=== PATIENT | male | born 1945 | race Caucasian/White ===

== ENCOUNTER 2020-08-11 18:14 | Emergency (ER) | payer MEDICARE, SELFPAY ==
[2020-08-11 18:46] VITALS: BP 146/67; PULSE 92; RESP 20; TEMP 36.6; O2SAT 97
--- NOTE | 2020-08-11 18:52 | ED.GENADULT ---
HPI - General Adult General Chief complaint: Urogenital-Male Stated complaint: Weak,Chills,Throwing Up Time Seen by Provider: 08/11/20 18:52 Source: patient and RN notes reviewed Mode of arrival: wheelchair Limitations: no limitations History of Present Illness HPI narrative: 75-year-old male presents with complaints of dysuria, lower back pain, fatigue, and nausea for 1 day. Grayson reports dysuria consist of frequent, burning, decrease urine, and urgency.? Increasing symptoms throughout the day of nausea, fatigue and fever. No treatment. Fever as high as 99.2 Fahrenheit, orally with intermittent chills. Nausea and dry heaving without vomiting and abdominal pain. Tolerating liquids well. No genital discharge.? No concerns for STDs. Exacerbating factors urinating.? Denies hematuria or genital bleeding. Remains active. The patient reports he have not been diagnosed with COVID-19. he patient reports he received vaccination for COVID-19. The patient reports he is not waiting for the results of a COVID-19 lab test. The patient reports he do not have a new or worsening cough or shortness of breath. Denies chest pain. The patient reports he do not have any rhinorrhea, congestion, loss of taste or smell, sore throat, and diarrhea. Denies recent traveling. Denies concerns for COVID-19 or exposures been home with limited outdoor exposure except for essential household needs and return home. At this time, patient is not suspected of having COVID-19. Some parts of this dictation were generated by voice recognition software and may contain typographical and/or grammatical inaccuracies. Related Data Home Medications Medication Instructions Recorded Confirmed aspirin 81 mg PO DAILY 08/11/20 08/11/20 dexlansoprazole [Dexilant] 60 mg PO DAILY 08/11/20 08/11/20 isosorbide mononitrate [Imdur] 30 mg PO DAILY 08/11/20 08/11/20 rosuvastatin [Crestor] 10 mg PO DAILY 08/11/20 08/11/20 simvastatin [Zocor] 20 mg PO DAILY 08/11/20 08/11/20 Allergies Allergy/AdvReac Type Severity Reaction Status Date / Time No Known Allergies Allergy Verified 08/11/20 18:29 Review of Systems Review of Systems: Narrative: CONSTITUTIONAL: Complains of fever, chills, fatigue. Denies sweats. EYES: Denies visual changes, redness, discharge. ENT: Denies rhinorrhea, congestion, sore throat, otalgia. CARDIOVASCULAR: Denies chest pain, palpitations, edema. RESPIRATORY: Denies dyspnea, wheezing, cough. GASTROINTESTINAL: Denies abdominal pain, vomiting, diarrhea. Complains of nausea. GENITOURINARY: Complains of dysuria (burning, small amount, and urgency), Denies hematuria, abnormal discharge. SKIN: Denies rash or itching. MUSCULOSKELETAL: Complains of diffused lower back pain. Denies joint pain or myalgia. NEUROLOGIC: Denies numbness or focal weakness. PSYCHIATRIC: Denies anxiety or depression. All other systems reviewed are negative, except as documented in HPI and below. [facility] Past Medical History Medical History (Updated 08/15/20 @ 01:15 by ZACK Villagomez) Coronary artery disease History of gastroesophageal reflux (GERD) Hypercholesteremia Surgical History Surgical History (Updated 08/11/20 @ 19:51 by ZACK Villagomez) History of heart surgery Family History Family History (Updated 08/11/20 @ 19:51 by ZACK Villagomez) Father Cancer Mother Heart disease Social History Social History (Updated 08/11/20 @ 19:52 by ZACK Villagomez) Smoking status: Never smoker Tobacco type: cigarettes Second hand tobacco smoke exposure: No Alcohol intake: never Substance use: never Living arrangements: with family Occupation/Education: retired Gender identity (if verbalized by the patient): Male Sexual Orientation (if Verbalized by the Patient): Straight or Heterosexual Comments At time of signature, agree with nurse past medical, surgical, social, and family history.? There is no rele
== END 2020-08-11 19:51 | disposition home or self-care (01) ==
PROVIDERS: Emergency Provider Nurse Practitioner Family; PCP Internal Medicine
DX: N39.0 Urinary tract infection, site not specified (principal); R11.0 Nausea; I25.10 Atherosclerotic heart disease of native coronary artery without angina pectoris; K21.9 Gastro-esophageal reflux disease without esophagitis; E78.00 Pure hypercholesterolemia, unspecified
CPT/HCPCS: 81003; 87077; 87086; 87088; 87186; 99203; G0463

== ENCOUNTER 2022-02-14 15:27 | Emergency (ER) | payer MEDICARE, SELFPAY ==
[2022-02-14 15:46] VITALS: BP 126/44; PULSE 76; RESP 16; TEMP 37.2; O2SAT 98
[2022-02-14 16:00] LABS: Glucose Point of Care 109 mg/dl (65-105)
--- NOTE | 2022-02-14 16:30 | ED.WEAKNESS ---
HPI - Weakness General Chief complaint: Urogenital-Male Stated complaint: uti Time Seen by Provider: 02/14/22 15:46 Source: patient Mode of arrival: ambulatory Limitations: no limitations History of Present Illness HPI Narrative: Mr. Castellanos is a 76-year-old male patient presenting to the clinic today with complaints of weakness, not feeling right in the head, and decreased appetite. He reports that he got a shingles shot yesterday and thinks that this may be the cause of his symptoms. His also reports that he has had these symptoms before when he had a urinary tract infection. He denies any fever or chills. He denies any shortness of breath or chest pain. Altered mental status is appropriate. He denies having a headache currently. When asked about facial asymmetry the stated that he has always had a crooked smile. He reports that his symptoms began this morning when he awoke Related Data Home Medications Medication Instructions Recorded Confirmed aspirin 81 mg tablet 81 mg PO DAILY 08/11/20 08/11/20 dexlansoprazole 60 mg 60 mg PO DAILY 08/11/20 08/11/20 capsule,biphase delayed release (Dexilant) isosorbide mononitrate 30 mg 30 mg PO DAILY 08/11/20 08/11/20 tablet,extended release 24 hr rosuvastatin 10 mg tablet (Crestor) 10 mg PO DAILY 08/11/20 08/11/20 simvastatin 20 mg tablet (Zocor) 20 mg PO DAILY 08/11/20 08/11/20 Allergies Allergy/AdvReac Type Severity Reaction Status Date / Time No Known Allergies Allergy Verified 08/11/20 18:29 Review of Systems Review of Systems: Pertinent positives per HPI. Patient denies any fever, chills, rash, headache, visual changes, dizziness, cough, runny nose, sore throat, shortness of breath, chest pain, palpitations, nausea, vomiting, diarrhea, constipation, abdominal pain, or any urinary issues. COUNTS INCLUDE 234 BEDS AT THE [facility] Past Medical History Medical History Coronary artery disease History of gastroesophageal reflux (GERD) Hypercholesteremia Surgical History Surgical History History of heart surgery Family History Family History Father Cancer Mother Heart disease Social History Social History Smoking status: Never smoker Tobacco type: cigarettes Second hand tobacco smoke exposure: No Alcohol intake: never Substance use: never Gender identity (if verbalized by the patient): Male Sexual Orientation (if Verbalized by the Patient): Straight or Heterosexual Comments At the time of my signature, I reviewed and agree with the nursing past medical, surgical, social, and family history. There is no relevant family history pertinent to the patient complaint. Exam Narrative: General: Well-developed, well nourished, in no apparent distress Head: Normocephalic, atraumatic Eyes: Pupils equally round and reactive to light bilaterally, EOM intact, sclera and conjunctive clear, no discharge, lids normal Ears: TMs intact and clear, ear canals clear, no drainage, grossly hearing normal. Nose: Nares patent, no discharge, no inflammation, no sinus tenderness. Mouth: Oropharynx without lesions or masses, good dentition, MMM. Tongue midline, even rise and fall of uvula Neck: Supple, trachea midline, no enlargement of anterior or posterior cervical nodes, no thyroid masses or goiter palpable. Cardio: Regular rate and rhythm, s1 and s2 normal, no murmur appreciated. Resp: Clear to auscultation bilaterally anteriorly and posteriorly, no rhonchi, rales, wheezing or rubs Musculoskeletal: No deformity, non-tender to palpation, grossly normal range of motion, hand [employer] and muscle strength is weaker on the right side versus the left, peripheral pulse strong, no edema, no cyanosis, normal gait and station
== END 2022-02-14 16:35 | disposition left against medical advice (07) ==
PROVIDERS: Emergency Provider Nurse Practitioner Family; PCP Internal Medicine
DX: M62.81 Muscle weakness (generalized) (principal); T88.1XXA Other complications following immunization, not elsewhere classified, initial encounter; Z79.82 Long term (current) use of aspirin; I25.10 Atherosclerotic heart disease of native coronary artery without angina pectoris; K21.9 Gastro-esophageal reflux disease without esophagitis; E78.00 Pure hypercholesterolemia, unspecified; Z53.29 Procedure and treatment not carried out because of patient's decision for other reasons
CPT/HCPCS: 81003; 82948; 99212; G0463